=== PATIENT | female | born 1950 | race African-American/Black ===

== ENCOUNTER 2018-01-31 18:23 | Observation (INO) | payer MEDICARE, OTHER ==
[2018-01-31] MEDS ORDERED: Nitroglycerin 0.4 MG TAB (25 Tab Bottle) ONE (18:49)
[2018-01-31 18:56] LABS: #Basophils 0.1 thou/uL (0.0-0.2); #Eosinphils 0.1 thou/uL (0.0-0.7); #Lymphocytes 2.9 thou/uL (1.20-3.40); #Monocytes 0.5 thou/uL (0.11-0.59); #Neutrophils 6.3 thou/uL (1.40-6.50); %Basophils 0.9 % (0.0-1.0); %Eosinophils 0.9 % (0.0-10.0); %Lymphocytes 29.6 % (21.0-51.0); %Monocytes 4.9 % (0.0-10.0); %Neutrophils 63.7 % (42.0-75.0); Hemoglobin 14.7 g/dL (12.0-16.0); Mean Corpuscular HGB CONC 31.9 g/dL (32.0-36.0); Mean Corpuscular Hemoglobin 27.9 pg (27.0-31.0); Mean Corpuscular Volume 87.5 fL (78.0-98.0); Mean Platelet Volume 8.8 fL (7.4-10.4); Platelet Count 265 thou/uL (130-400); Red Blood Cell (RBC) Count 5.25 mill/uL (4.20-5.40); White Blood Cell (WBC) Count 9.9 thou/uL (4.8-10.8)
--- NOTE | 2018-01-31 19:16 | RAD ---
PORTABLE AP CHEST X-RAY 01/31/18 HISTORY: Chest pain and left arm which started a couple of hours ago. Hypertension. COMPARISON: None available. FINDINGS: The cardiac silhouette and pulmonary vasculature are within normal limits. There is mild elevation of the right hemidiaphragm with mild atelectasis at the right lung base. The lungs are otherwise clear. Degenerative changes are seen in the spine. Vascular calcifications seen in the thoracic aorta. IMPRESSION: No acute cardiopulmonary process. POS: JUDIH
[2018-01-31 19:21] LABS: CKMB 1.3 ng/mL (0-6.6); Troponin I Less than 0.010 ng/mL (< 0.028)
[2018-01-31 19:23] LABS: ALT (SGPT) 12 U/L (8-55); AST (SGOT) 18 U/L (5-34); Albumin 4.5 g/dL (3.4-4.8); Alkaline Phosphatase 67 U/L (40-150); Anion Gap 12 mmol/L (10-20); BUN (Urea Nitrogen) 12 mg/dL (9.8-20.1); Bilirubin, Total 0.3 mg/dL (0.2-1.2); CK (CPK) 118 U/L (29-168); Calc. Creatinine Clearance 0 mL/min (70-130); Calcium 10.3 mg/dL (7.8-10.44); Carbon Dioxide 28 mmol/L (23-31); Chloride 101 mmol/L (98-107); Estimated GFR-MDRD 47; Globulin 3.6 g/dL (2.4-3.5); Glucose 120 mg/dL (80-115); Lipase 13 U/L (8-78); Potassium 3.6 mmol/L (3.5-5.1); Protein, Total 8.1 g/dL (6.0-8.3); Sodium 137 mmol/L (136-145)
[2018-01-31] MEDS ORDERED: Lidocaine Viscous Sol 2% 15 ml UD Cup ONE (19:57)
[2018-01-31] MEDS ORDERED: Mag-Al 1200 mg/1200 mg/30 ML UDCUP ONE (19:57)
[2018-01-31 22:51] LABS: Troponin I Less than 0.010 ng/mL (< 0.028)
[2018-01-31] MEDS ORDERED: Calcium Carbonate 500 MG ChewTAB PO PRN (23:56)
[2018-01-31] MEDS ORDERED: Acetaminophen 325 MG TAB PO PRN (23:56)
[2018-01-31] MEDS ORDERED: Zolpidem Tartrate 5 MG TAB PO PRN (23:56)
[2018-01-31] MEDS ORDERED: Bisacodyl 10 MG SUPP PR PRN (23:56)
[2018-01-31] MEDS ORDERED: Guaifenesin DM 100-10/5 ML UDCUP PO PRN (23:56)
[2018-01-31] MEDS ORDERED: Loperamide HCl 2 MG CAP PO PRN (23:56)
[2018-01-31] MEDS ORDERED: Ondansetron ODT 4 MG TAB PO PRN (23:56)
[2018-01-31] MEDS ORDERED: Ondansetron PF 4 MG/2 ML Vial IVP PRN (23:56)
[2018-01-31] MEDS ORDERED: Bisacodyl 5 MG TAB PO PRN (23:56)
[2018-01-31] MEDS ORDERED: HYDROcodone/Acetaminophen 5/325 mg Tablet PO PRN (23:56)
[2018-02-01 00:03] VITALS: BMI 28.1
[2018-02-01] MEDS ORDERED: Linaclotide [Linzess] 145 MCG PO PRN (00:28)
--- NOTE | 2018-02-01 00:56 | HP ---
PRIMARY CARE PHYSICIAN: This is city call admission. Patient is originally from [place], [place]. DATE OF SERVICE: 01/31/2018 REASON FOR ADMISSION: Chest pain. HISTORY OF PRESENT ILLNESS: A 67-year-old -[place] female who has history of hypertension, hypothyroidism, gastroesophageal reflux disease, who was at home, watching TV and all of suddenly, she was having substernal chest pain that pain radiated to left arm and left shoulder associated with mild shortness of breath and nausea. Pain persisted for almost a couple of hours and that relieved immediately after she received nitroglycerin and aspirin. When I saw this patient in the emergency room, patient was chest pain free. Routine evaluation including CBC, BMP completely normal. Chest x-ray was also unremarkable. EKG was also normal. Patient reports that she had similar type of chest pains 10 years ago. At that time, she had stress test done, which was normal. Lately, she did not have any workup. Patient is originally from [place], [place] and she is visiting here and lives with her son. REVIEW OF SYSTEMS: Please see my HPI for pertinent positive and negative. All other review of systems reviewed and negative except as mentioned in the HPI: Constitutional: Weight loss or gain, ability to conduct usual activities. Skin : Rash, itching. Eyes: Double vision, pain. ENT/Mouth: Nose bleeding, neck stiffness, pain, tenderness. Cardiovascular: Palpitations, dyspnea on exertion , orthopnea. Respiratory: Shortness of breath, wheezing, cough, hemoptysis, fever, or night sweats. Gastrointestinal: Poor appetite, abdominal pain, heartburn, nausea, vomiting, constipation, or diarrhea. Genitourinary: Urgency , frequency, dysuria, nocturia. Musculoskeletal: Pain, swelling. Neurologic/ Psychiatric: Anxiety, depression. Allergy/Immunologic: Skin rash, bleeding tendency. ALLERGIES: No known drug allergy. CURRENT HOME MEDICATIONS: Cetirizine 10 mg daily, Synthroid 75 mcg p.o. daily, lisinopril 20 mg p.o. daily, omeprazole 40 mg p.o. daily. PAST MEDICAL HISTORY: Hypertension, hypothyroidism, gastroesophageal reflux disease, fibromyalgia. PAST SURGICAL HISTORY: Partial hysterectomy, partial colon removal. PAST PSYCHIATRIC HISTORY: Reviewed and negative. SOCIAL HISTORY: Patient is originally from [place]. She denies any tobacco, alcohol, or illicit drug abuse. She is living here with her son. FAMILY HISTORY: No strong family history of premature coronary artery disease, stroke, or cancer. EMERGENCY ROOM COURSE: Patient is given nitroglycerin 0.4 mg, GI cocktail 40 mL , aspirin 325 mg, and another nitroglycerin 0.4 mg sublingual. PHYSICAL EXAMINATION: VITAL SIGNS: On arrival, blood pressure 165/73, pulse 75, respiratory rate 17, temperature 98.5, saturation 99% on room air, weight 72.1 kilograms. GENERAL: Patient is currently alert, awake, no obvious acute distress. HEENT: Head, normocephalic, atraumatic. Eyes: Pupils round, reactive to light. Extraocular muscle intact. ENT: Oropharynx within normal limits. Moist mucous membranes, no oral lesion, no pharyngeal erythema, no exudate. NECK: Supple, no JVD, no thyromegaly, no carotid bruit, no jugular venous distention. LUNGS: Clear to auscultation without any rhonchi or rales. CARDIAC: S1, S2 regular. Soft systolic murmur noted, no gallop, no rub. ABDOMEN: Soft, bowel sounds present, nontender, nondistended. No organomegaly , no mass, no suprapubic tenderness. BACK: Unremarkable, no CVA tenderness. EXTREMITIES: Upper extremity passive movement of all joints are normal. Lower extremities: No edema. Good distal pulsation. SKIN: No skin rash. HEMATOLOGIC SYSTEM: No lymphadenopathy. PSYCHIATRIC: Normal affect. SIGNIFICANT LABORATORY DATA: EKG showing normal sinus rhythm within normal limits. Chest x-ray based on my review, no acute cardiopulmonary process. CBC : WBC 9.9, hemoglobin 14.7, platelet 265. BMP: Sodium 137, potassium 3.6, chloride 101, carbon dioxide 28, BUN 12, creatinine 1.15, glucose 120, calcium 10.3. LFT: AST 18, ALT 12, alkaline phosphatase 67, albumin 4.5, lipase 13, CK 118, CK-MB 1.3, troponin I less than 0.010. EKG normal sinus rhythm within normal limits. ASSESSMENT AND PLAN: 1. Chest pain, acute. This patient's chest pain description is atypical, improved with ER treatment, patient was given 2 nitroglycerin and GI cocktail as well as aspirin. After that, she became chest pain free. Her EKG is normal. Her cardiac enzymes are negative. This patient does not have any risk factor for thromboembolic disorder at this point. This patient has mild probability of coronary artery disease based on her age, sex, and risk factor profile. Patient will be observed overnight on telemetry floor. We will continue the aspirin 325 mg p.o. daily. We will treat with Pepcid 20 mg p.o. b.i.d. We will do serial cardiac enzymes x3 and we will consider checking lipid profile for risk stratification as well as we will perform exercise Cardiolite stress test tomorrow morning for diagnostic reason. If stress test is normal, then we will consider discharging her home. 2. Hypothyroidism. Continue Synthroid 75 mcg p.o. daily. 3. Hypertension. Continue lisinopril with hydrochlorothiazide one tablet p.o. daily. 4. Gastroesophageal reflux disease. Continue Protonix 40 mg p.o. daily. 5. Irritable bowel syndrome. Continue Linzess 145 mcg p.o. daily. 6. Fibromyalgia. Continue Voltaren topical application and tramadol 50 mg p.o. b.i.d. 7. Deep venous thrombosis prophylaxis not needed, because we are expecting discharge in 24 hours. 8. Gastrointestinal prophylaxis. Patient is already on Protonix therapy. 9. Code status: Patient is FULL CODE. Disposition plan based on clinical course. We are expecting patient's stay in hospital 24 hours. Consider discharge if stress test is negative. MTDD
[2018-02-01 01:43] LABS: Troponin I Less than 0.010 ng/mL (< 0.028)
[2018-02-01 03:21] LABS: Cardiac Risk 3.7 (Less than 4.5)
[2018-02-01] MEDS ORDERED: Levothyroxine Sodium 75 MCG TAB PO SCH (06:00)
[2018-02-01 08:07] VITALS: TEMP 97.8
[2018-02-01] MEDS ORDERED: Diclofenac Sodium [Voltaren] TOP SCH (09:00)
[2018-02-01] MEDS ORDERED: Famotidine 20 MG TAB PO SCH (09:00)
[2018-02-01] MEDS ORDERED: Aspirin 325 MG TAB PO SCH (09:00)
[2018-02-01] MEDS ORDERED: Cetirizine HCl 10 MG TAB PO SCH (09:00)
[2018-02-01] MEDS ORDERED: traMADol HCl 50 MG TAB PO SCH (09:00)
[2018-02-01] MEDS ORDERED: Lisinopril/Hydrochlorothiazide 20 mg/12.5 mg Tablet PO SCH (09:00)
[2018-02-01] MEDS ORDERED: ADENOSINE 60 MG/20 ML VIAL ONE (10:39)
[2018-02-01 11:50] VITALS: BP 128/60
--- NOTE | 2018-02-01 14:01 | NM ---
CARDIAC SPECT WITH EF AND WALL MOTION: History: 67-year-old female with history of chest pain. Technique: This is an adenosine Sestamibi study. FINDINGS: Patient was injected with 31 mCi Technetium 99M Sestamibi intravenously for stress imaging and patien t was injected with 11 mCi Technetium 99M Sestamibi for resting images. Multiple SPECT images in the short axis, vertical long axis, and horizontal long axis demonstrates no scan evidence for infarct or ischemia. TID: 0.82 LHR: 0.43 EDV: 54 mL EF: 71% Myocardial perfusion wall motion: Normal. IMPRESSION: Unremarkable stress/rest myocardial scan with EF and wall motion. POS: MANUEL
--- NOTE | 2018-02-01 22:39 | DIS ---
DATE OF ADMISSION: 01/31/2018 DATE OF DISCHARGE: 02/01/2018 PRIMARY CARE PHYSICIAN: Dr. Hernández in [place], [place]. CODE STATUS: FULL. CONSULTATIONS: None. PROCEDURES: Nuclear medicine stress test which was negative and the EF of 71%, had a chest x-ray in the ER, which were no acute findings. DISCHARGE DIAGNOSES: 1. Atypical chest pain. 2. Hypertension. 3. Gastroesophageal reflux disease. 4. Hypothyroidism. 5. Fibromyalgia. REVIEW OF SYSTEMS: Patient was seen by me this morning and denied any complaints. Denied any chest pain, denied any dizziness, any syncope. Patient was able to ambulate to the bathroom overnight with out any assistance. Denied any shortness of breath, fever, night sweats. Denied any nausea, vomitin g, diarrhea. PHYSICAL EXAMINATION: VITAL SIGNS: Pulse 72, temperature 98, respiratory rate 16, blood pressure 106/59. GENERAL: Patient is currently awake and alert. No obvious signs of distress. HEENT: Head is normocephalic, atraumatic. Eyes, pupils are round, reactive to light. Extraocular m uscle is intact. Moist mucous membranes. NECK: Supple. No JVD. LUNGS: Clear to auscultation without any gallops, rhonchi, or rales. CARDIAC: S1, S2 regular rhythm. Soft systolic murmur is noted. No gallop or rub. ABDOMEN: Soft, nontender. Bowel sounds are present. No distention. BACK: Unremarkable. No CVA tenderness. EXTREMITIES: Patient is able to move all extremities. Good pulses and sensation x4. There is no ed reny noted in the lower extremities. SKIN: Dry, warm, and intact. No rashes noted. PSYCH: Normal affect. HOSPITAL COURSE: This is a 67-year-old female who was in her normal state of health yesterday while visiting her son from [place], when she started having sharp substernal chest pain. She reports thi s pain radiated to her left arm and shoulder. Reports some shortness of breath with some nausea. Sh e reports the pain lasted about 5 to 6 and started getting better after she was given nitroglycerin a nd aspirin in the ER. Her labs were within normal limits. Troponins have been negative x3. Her str ess test was negative today. EKG in the emergency room was unremarkable. Patient does report some s imilar pain 10 years ago. She had a stress test at that time, which was also negative. This morning we visited the patient, she denied any further symptoms. She denies having any chest pain, any shor tness of breath. Her vital signs have remained stable. Discharge plan was discussed with her and Dr. Haywood and they agreed to be discharged home and she will have some close follow up with her PCP in [place]. Patient reports she will be returning home this week. ALLERGIES: No known drug allergies. DISCHARGE MEDICATIONS: She will be continued home on her home medications, Zyrtec 10 mg p.o. daily, Voltaren 1% gel 1 application topical daily, estrogen 1.25 mg p.o. daily, levothyroxine 75 mcg p.o. d aily, Linzess 145 mcg p.o. daily, lisinopril/hydrochlorothiazide 20/12.5 one tab p.o. daily, Prilosec 40 mg p.o. daily, and tramadol 50 mg p.o. b.i.d. DISCHARGE CONDITION: Stable. DISPOSITION: Patient will be discharged home. REFERRAL: She will need to see Dr. Hernández in [place] within 1 week.
--- NOTE | 2018-02-04 14:10 | EKG ---
Test Reason : CP Blood Pressure : / mmHG Vent. Rate : 076 BPM Atrial Rate : 076 BPM P-R Int : 184 ms QRS Dur : 070 ms QT Int : 386 ms P-R-T Axes : 043 017 049 degrees QTc Int : 434 ms Normal sinus rhythm Normal ECG Confirmed by RAFAEL HANSEN D.O. ([id number]), international editorial producer SHONNA MARTINEZ ([id number]) on 02/04/2018 2:10:19 PM Referred By: PAPO Confirmed By:RAFAEL HANSEN D.O.
== END 2018-02-01 15:05 | disposition home or self-care (01) ==
LOC: ERS 18:23 → 2SW 23:45
PROVIDERS: ADMIT Internal Medicine; ATTEND Internal Medicine
DX: R07.89 Other chest pain (principal); I10 Essential (primary) hypertension; K21.9 Gastro-esophageal reflux disease without esophagitis; E03.9 Hypothyroidism, unspecified; M79.7 Fibromyalgia; Z79.899 Other long term (current) drug therapy
CPT/HCPCS: 71045; 78452; 80053; 80061; 82550; 82553; 83690; 84484 ×3; 85025; 93005; 93017; 94760; 99285; A9500; G0378 ×2; 36415; J0153